=== PATIENT | male | born 1975 | race Caucasian/White ===

== ENCOUNTER 2021-10-17 09:53 | Emergency (ER) | payer BC, SELFPAY ==
--- NOTE | ~2021-10-17 | XR_ITS ---
EXAMINATION: XR ANKLE, RIGHT CLINICAL INFORMATION: Pain following trauma COMPARISON: None TECHNIQUE: AP, lateral, and mortise views of the right ankle. FINDINGS: 3 views of the right ankle demonstrate some soft tissue swelling about the medial aspect. Bony density about the medial malleolus has the appearance of chronic spurring lying medial to the expected location of the deltoid ligament attachment with no definite avulsion fracture appreciated. Ankle mortise appears intact without widening of the medial joint space. There is a small spur seen involving the tip of the lateral malleolus. XR/XR ankle RT min 3V IMPRESSION: Soft tissue swelling and degenerative change as described. No definite acute fracture or dislocation identified.
[2021-10-17 09:55] VITALS: BP 172/105; PULSE 98; RESP 18; TEMP 36.6; O2SAT 98; BMI 33.2
--- NOTE | 2021-10-17 10:03 | ED.LOWEXIN ---
HPI - Extremity Injury (Lower) General Chief Complaint: Extremity Injury, Lower Stated Complaint: ankle Time Seen by Provider: 10/17/21 10:03 Source: patient Limitations: no limitations History of Present Illness HPI Narrative: Patient presenting with worsening right ankle pain. Patient states he might have hit it on anchor when he was down in [place] where he is from. Patient also has a history of gout has not had an attack in his ankle recently. Positive swelling to the right ankle with pain that is 7/10 and hypersensitive to the touch. Pain increases with ambulation weight-bearing. Symptoms mild to moderate. No other complaints this time. Related Data Previous Rx's Medication Instructions Recorded colchicine 0.6 mg capsule 0.6 mg PO TID PRN #20 cap 10/17/21 naproxen 500 mg tablet,delayed 500 mg PO BID PRN #30 tab 10/17/21 release (EC-Naproxen) Allergies Allergy/AdvReac Type Severity Reaction Status Date / Time No Known Allergies Allergy Verified 10/17/21 10:03 Review of Systems Constitutional: Constitutional: Denies chills, Denies fever(s) and Denies headache(s) ENT: Denies headache(s) Cardiovascular: Cardiovascular: Denies chest pain and Denies dyspnea Respiratory: Respiratory: Denies dyspnea Gastrointestinal: Gastrointestinal: Denies nausea and Denies vomiting Musculoskeletal: Musculoskeletal: Denies deformity, Reports arthralgias and Reports joint swelling Comments: Right ankle pain swelling Neurologic: Denies headache(s) [facility] Past Medical History Attestation statement: The following information was validated with the patient. Medical History Gout Social History Social History Advance Directives: No Physical Exam Vital Signs: Vital Signs: Last Vital Signs Temp 98 F 10/17/21 09:55 Pulse 98 10/17/21 09:55 Resp 18 10/17/21 09:55 BP 172/105 H 10/17/21 09:55 Pulse Ox 98 10/17/21 09:55 BMI result Body Mass Index 33.2 vital signs have been reviewed as normal and appeared to be correct. Blood pressure normal. Heart rate normal. Respiration rate normal. Temperature normal. Oxygen saturation normal. Appearance: Alert. Oriented X3. No acute distress. Head: Normal external exam. Normocephalic. Atraumatic. Eyes: PERRLA. EOMI. Conjunctiva and sclera normal. Eyelids normal. ENT: Pharynx normal. Uvula midline. Moist mucous membranes. CVS: Heart regular rate and rhythm no murmurs and rubs Respiratory: Breath sounds are clear to auscultation bilaterally. No accessory muscle use noted. Back: Full range of motion noted. Skin: Skin warm and dry no obvious erythema noted to the ankle or lymphangitis. Positive pulses no ecchymosis Extremities: Right ankle positive edema hypersensitive to the touch slight tenderness lateral malleolus. Neuro: Oriented X 3. No motor deficit. No sensory deficit. Reflexes normal. Course Course Course Narrative: Right ankle sprain Right ankle fracture Gouty arthritis Right ankle x-ray is pending symptoms seem more consistent with right ankle gouty arthritis 10:32 a.m. right ankle x-ray is negative likely sprain versus gouty flare will treat accordingly MDM - Extremity Injury (Lower) Imaging Data ankle: Radiologist's impression: [address] [address] XRay Report Signed Patient: Lionel Castro MR#: [id number] : 1975 Acct:[id number] Age/Sex: 46 / M ADM Date: 10/17/21 Loc: HO.ED Attending Dr: Ordering Physician: Garfield Shirley Date of Service: 10/17/21 Procedure(s): XR ankle RT min 3V Accession Number(s): [id number] cc: Garfield Shirley ~ EXAMINATION: XR ANKLE, RIGHT CLINICAL INFORMATION: Pain following trauma? COMPARISON: None? TECHNIQUE: AP, lateral, and mortise views of the right ankle. FINDINGS: 3 views of the right ankle demonstrate some soft tissue swelling about the medial aspect. Bony density about the medial malleolus has the appearance of chronic spurring lying medial to the expected location of the deltoid ligament attachment with no definite avulsion fracture appreciated. Ankle mortise appears intact without widening of the medial joint space. There is a small spur seen involving the tip of the lateral malleolus. XR/XR ankle RT min 3V IMPRESSION: Soft tissue swelling and degenerative change as described. No definite acute fracture or dislocation identified. Dictated By: Deyvi Marie MD Signed By: <Electronically signed by Deyvi Marie MD in OV> 10/17/21 1026 DD/ 1010 TD/TT:? Financial Aid Advisor: LIUDMILA Discharge Plan Discharge Clinical Impression: Gout attack Qualifiers: Gout site: ankle Gout etiology: unspecified cause Laterality: right Qualified Code(s): M10.9 - Gout, unspecified Patient Disposition: Home, Self-Care Instructions: Gout (ED), Swollen Ankle Joint (ED) Additional Instructions: Rest ice elevation Medication as directed X-ray shows no signs of fracture pain is likely secondary to right ankle sprain versus gouty arthritis To start on allopurinol you need to have your blood work checked recommend following up with your PCP 1 Back: [place] Prescriptions: New colchicine 0.6 mg capsule 0.6 mg PO TID PRN (Reason: pain) Qty: 20 RF: 0 naproxen [EC-Naproxen] 500 mg tablet,delayed release (DR/EC) 500 mg PO BID PRN (Reason: pain (scale score 4-6)) Qty: 30 RF: 0
== END 2021-10-17 10:59 | disposition home or self-care (01) ==
PROVIDERS: Emergency Provider Student in an Organized Health Care Education/Training Program
DX: M10.9 Gout, unspecified (principal); M25.571 Pain in right ankle and joints of right foot
CPT/HCPCS: 73610; 99283